=== PATIENT | female | born 1945 | race Two or more races ===

== ENCOUNTER 2017-06-05 11:31 | Emergency (ER) | payer MEDICARE, OTHER ==
[~2017-06-05] VITALS: Ht 154.9 cm; Wt 80.9 kg
[2017-06-05] MEDS ORDERED: SODIUM CHLORIDE 0.9% 1,000ML IVBOLUS ONE ×2 (12:00→13:30)
[2017-06-05] MEDS ORDERED: SODIUM CHLORIDE FLUSH 10ML SYR IVF ONE (12:00)
[2017-06-05 12:12] LABS: HEMATOCRIT 39.5 % (34.6-47.8); HEMOGLOBIN 13.4 g/dL (11.7-16.4); WHITE BLOOD COUNT 14.4 x10^3/uL (3.4-10)
[2017-06-05 12:22] LABS: BLOOD UREA NITROGEN 21 mg/dL (7-18)
[2017-06-05 12:25] LABS: ASPARTATE AMINO TRANSFERASE 24 U/L (15-37)
[2017-06-05] MEDS ORDERED: POTASSIUM CHLORIDE 10% 40 MEQ/30 ML UDC PO ONE (13:00)
[2017-06-05] MEDS ORDERED: MAGNESIUM SULFATE 1 GM in SODIUM CHLORIDE 0.9% 50 ML IV ONE (13:00)
[2017-06-05] MEDS ORDERED: OMNIPAQUE 350 MG/ML, 100ML BOTTLE ONE (15:09)
[2017-06-05 16:51] VITALS: BP 138/71
== END 2017-06-05 18:29 | disposition home or self-care (01) ==
LOC: ED 17:49
DX: E87.1 Hypo-osmolality and hyponatremia (principal); E87.6 Hypokalemia; Z88.0 Allergy status to penicillin
CPT/HCPCS: 36415; 74177; 80053; 83690; 85025; 93005; 96361; 96365; 99285; J3475; J7030; Q9967